=== PATIENT | female | born 1965 | race American Indian/Alaskan Native ===

== ENCOUNTER 2018-05-04 12:17 | Emergency (ER) | payer SELFPAY ==
[2018-05-04] MEDS ORDERED: TYLENOL ONE (13:02)
[2018-05-04] MEDS ORDERED: MORPHINE IV ONE ×2 (13:09→13:30)
[2018-05-04] MEDS ORDERED: MORPHINE ONE ×2 (13:11→13:23)
--- NOTE | 2018-05-04 13:12 | Emergency Department Report ---
HPI - General Chief Complaint: Extremity Injury, Lower Time Seen by Provider: 05/04/18 12:55 - HPI HPI: 53-year-old female presents to the emergency department via EMS with the complaint of left ankle pain and suspected fracture. 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 She immediately had severe pain, swelling and was unable to ambulate. She denies any past medical history. She did not take anything and was not given anything for her symptoms prior to presentation. ED Past Medical Hx - Past Medical History Previous Medical History?: No - Surgical History Past Surgical History?: No - Social History Smoking Status: Current Some Day Smoker Substance Use Type: Alcohol - Medications Home Medications: Home Medications Medication Instructions Recorded Confirmed Last Taken Type oxyCODONE /ACETAMINOPHEN [Percocet 1 tab PO Q6HR PRN #12 tablet 05/04/18 Unknown Rx 5/325] ED Review of Systems ROS: Stated complaint: POSS BROKEN ANKLE Other details as noted in HPI Comment: All other systems reviewed and negative Constitutional: denies: chills, fever Eyes: denies: eye pain, eye discharge, vision change ENT: denies: ear pain, throat pain Respiratory: denies: cough, shortness of breath, wheezing Cardiovascular: denies: chest pain, palpitations Gastrointestinal: denies: abdominal pain, nausea, diarrhea Genitourinary: denies: urgency, dysuria, discharge Musculoskeletal: joint swelling, arthralgia Skin: denies: rash, lesions Neurological: denies: headache, numbness Physical Exam - Physical Exam Vital Signs: Vital Signs 05/04/18 12:49 Pulse Rate 53 L Respiratory 18 Rate Blood Pressure 172/95 O2 Sat by Pulse 97 Oximetry Physical Exam: GENERAL: The patient is well-developed well-nourished. HENT: Normocephalic. Atraumatic. Patient has moist mucous membranes. EYES: Extraocular motions are intact. Pupils equal reactive to light bilaterally. NECK: Supple. Trachea is midline. CHEST/LUNGS: Clear to auscultation. There is no respiratory distress noted. HEART/CARDIOVASCULAR: Regular. There is no tachycardia. There is no murmur. ABDOMEN: Abdomen is soft, nontender. Patient has normal bowel sounds. There is no abdominal distention. SKIN: Skin is warm and dry. There is some nonpitting swelling to the circumferential left ankle and distal leg. NEURO: The patient is awake, alert, and oriented. The patient is cooperative. The patient has no focal neurologic deficits. The patient has normal speech and gait. MUSCULOSKELETAL: There is tenderness to palpation to the left distal lower extremity and ankle. There is decreased range of motion of the foot and ankle secondary to pain. Capillary refill is less than 2 seconds and dorsalis pedis pulse is +2 over 4 to the affected left lower extremity. ED Course Vital Signs 05/04/18 12:49 Pulse Rate 53 L Respiratory 18 Rate Blood Pressure 172/95 O2 Sat by Pulse 97 Oximetry ED Medical Decision Making - Radiology Data Radiology results: image reviewed interpreted by me: X-ray of the left ankle shows a distal fibular fracture and a distal comminuted tibia fracture - Medical Decision Making Patient presents with a closed distal tib-fib fracture with some comminuted areas of the distal tibia. The patient is neurovascularly intact. She was given some pain control and placed in a Kyrie splint. She was once again neurovascularly intact after splint placement. The patient will be nonweightbearing until follow-up with the orthopedist. She had some elevated blood pressure readings without a history of hypertension that is most like secondary to her discomfort. We discussed staying away from foods are high in salt and caffeinated products and following up with a primary care physician regarding the blood pressure issues. - Differential Diagnosis fracture, dislocation, sprain, strain, contusion Critical Care Time: No Critical care attestation.: If time is entered above; I have spent that time in minutes in the direct care of this critically ill patient, excluding procedure time. ED Disposition Clinical Impression: Elevated blood pressure reading Fracture of distal fibula Qualifiers: Encounter type: initial encounter Fracture type: closed Fracture morphology: unspecified fracture morphology Laterality: left Qualified Code(s): S82.832A - Other fracture of upper and lower end of left fibula, initial encounter for closed fracture Fracture of distal end of tibia Qualifiers: Encounter type: initial encounter Fracture type: closed Fracture morphology: unspecified fracture morphology Laterality: left Qualified Code(s): S82.302A - Unspecified fracture of lower end of left tibia, initial encounter for closed fracture Disposition: DC-01 TO HOME OR SELFCARE Is pt being admited?: No Condition: Stable Instructions: Ankle Fracture (ED) Additional Instructions: Please follow up with an orthopedist in a few days. Remain in the splint and nonweightbearing using crutches until follow-up with the orthopedist. Do not get the splint wet or it may dissolve or lose its structural integrity. Return to the emergency Department with any worsening of your symptoms or any acute distress. Check your blood pressure and keep a blood pressure log. Try and stay away from foods that are high in salt and caffeinated products to help with your blood pressure. You have been prescribed a medication that is sedating and therefore should not be taken prior to driving, working, and responsible for children and in no way should be mixed with alcohol of any quantity. Prescriptions: oxyCODONE /ACETAMINOPHEN [Percocet 5/325] 1 tab PO Q6HR PRN #12 tablet PRN Reason: Pain Referrals: CARITO RIOS MD [Staff Physician] - 3-5 Days [facility] [Provider Group] - 3-5 Days KAILA LOPEZ MD [Staff Physician] - 3-5 Days [facility] [Outside] - 3-5 Days Time of Disposition: 14:24
--- NOTE | 2018-05-04 13:42 | XRay Report ---
LEFT ANKLE, 2 VIEWS History: Pain, swelling. Findings: Bandages or a splint is in place which degrades bony detail. There is an oblique fracture through the distal fibular metaphysis with 2 mm displacement. Multiple fracture lines are identified through the base of the medial malleolus and posterior surface of the distal tibia. There is mild posterior subluxation of the talus with respect to the tibia. The visualized hindfoot is intact. Impression: Oblique fracture of the distal fibula. Comminuted fracture of the distal tibia. Subluxation at the tibiotalar joint.
[2018-05-04 15:01] VITALS: BP 157/91
== END 2018-05-04 15:02 | disposition home or self-care (01) ==
LOC: ED 12:17
DX: S82.832A Other fracture of upper and lower end of left fibula, initial encounter for closed fracture (principal); R03.0 Elevated blood-pressure reading, without diagnosis of hypertension; F17.200 Nicotine dependence, unspecified, uncomplicated; X50.1XXA Overexertion from prolonged static or awkward postures, initial encounter; Y93.89 Activity, other specified; Y92.89 Other specified places as the place of occurrence of the external cause; Y99.8 Other external cause status
CPT/HCPCS: 29515; 73600; 96374; 99284; J2270